=== PATIENT | female | born 1995 | race Caucasian/White ===

== ENCOUNTER 2021-06-19 08:49 | Emergency (ER) | payer OTHER, SELFPAY ==
--- NOTE | ~2021-06-19 | US_ITS ---
US abdomen limited DATE: 06/19/2021 11:26 INDICATION: Epigastric abdominal pain TECHNIQUE: Real-time imaging and Doppler analysis with attention to the liver, pancreas, gallbladder COMPARISON: None FINDINGS: No hepatic space-occupying mass lesion. Normal hepatopedal portal venous flow direction. No gallstones or gallbladder wall thickening. Negative sonographic Cosme's sign. Common bile duct me asures 4 mm, normal. No pancreatic mass lesion. IMPRESSION: Normal examination Reviewed, dictated and finalized at [facility] Reviewed, dictated and finalized at [facility]. IMPRESSION: Normal examination
[2021-06-19 09:04] VITALS: BP 100/73; PULSE 89; RESP 16; TEMP 36.6; O2SAT 98
[2021-06-19 09:18] LABS: Basophils Percent Auto 0.4 % (0.2-1.2); Eosinophils Absolute Auto 0.2 K/mm3 (0-0.3); Eosinophils Percent Auto 2.7 % (0-4.4); Hematocrit 39.9 % (37.0-47.0); Hemoglobin 13.6 g/dL (12.0-15.0); Immature Granulocyte Absolute 0.02 K/mm3 (0.00-0.031); Immature Granulocyte Percent A 0.3 % (0-0.5); Lymphocytes Absolute Auto 1.79 K/mm3 (0.9-3.2); Lymphocytes Percent Auto 23.1 % (18.3-44.2); Mean Corpuscular HGB Conc 34.1 g/dl (32-36); Mean Corpuscular Hemoglobin 28.4 pg (26-34); Mean Corpuscular Volume 83.3 fl (80-100); Mean Platelet Volume 9.9 fl (7.4-10.4); Monocytes Absolute Auto 0.8 K/mm3 (0.1-0.6); Monocytes Percent Auto 9.9 % (2.6-8.5); Neutrophils Absolute Auto 4.9 K/mm3 (1.3-6.7); Neutrophils Percent Auto 63.6 % (45.5-73.1); Platelet Count Result 327 k/mm3 (150-375); Red Blood Count 4.79 M/mm3 (4.2-5.4); Red Cell Distribution Width 14.7 % (11.5-14.5); White Blood Count 7.7 K/mm3 (4.5-10.0)
[2021-06-19 09:28] LABS: Add Urine Microscopic? YES; Alanine Aminotransferase 22 U/L (4-35); Alkaline Phosphatase 98 U/L (38-126); Anion Gap 12 mmol/L (8-16); Appearance Urine Clear (Clear); Aspartate Amino Transferase 25 U/L (14-36); Bacteria Urine Trace /hpf; Bilirubin Urine Negative (Negative); Bilirubin,Total 0.4 mg/dL (0.2-1.3); Blood Urea Nitrogen 11 mg/dL (7-17); Blood Urine Negative (Negative); Calcium 9.3 mg/dL (8.4-10.2); Carbon Dioxide 26 mmol/L (22-30); Chloride 103 mmol/L (98-107); Color Urine Yellow (Yellow); Estimated CRCL calculation 85 ml/min; Estimated Glomerular Filt Rate > 60; Glucose 108 mg/dL (65-110); Glucose Urine UA Negative (Negative); Ketones Urine Negative (Negative); Leukocyte Esterase Ur 2+ LEU/UL (Negative); Lipase 48 U/L (23-300); Mucus Urine Rare /lpf; Nitrate Urine Negative (Negative); Potassium 3.6 mmol/L (3.4-5.0); Protein Urine 1+ mg/dL (Negative); Sodium 141 mmol/L (137-145); Specific Grav Ur 1.018 (1.001-1.035); Squamous Epithelial Cell Urine Moderate /hpf (Few); Urobilinogen Urine Negative mg/dL (<2.0)
[2021-06-19 10:56] VITALS: BP 115/73; PULSE 92; RESP 16; O2SAT 98
--- NOTE | 2021-06-19 12:05 | ED.ABDPAIN ---
HPI - Abdominal Pain General Chief Complaint: Abdominal Pain Stated Complaint: abd pain Time Seen by Provider: 06/19/21 09:28 Source: patient Mode of arrival: ambulatory Limitations: no limitations History of Present Illness HPI narrative: 26-year-old female Basically healthy and here because of abdominal pain Last 2 or 3 nights she has been awakened in the early a.m. hours by epigastric pain Is mostly achy but there is also some shooting and sharp components to it She has had nausea and a decreased appetite but no fever She does not report that anything exacerbates her symptoms, i.e. she is able to eat without problems No diarrhea, no fever Her last menstrual period was not quite 4 weeks ago There is a family history of gallbladder issues Related Data Allergies Allergy/AdvReac Type Severity Reaction Status Date / Time No Known Allergies Allergy Unknown Verified 06/19/21 09:13 Review of Systems Review of Systems: All systems reviewed & are unremarkable except as noted in HPI and below Constitutional: Constitutional: Reports no additional constitutional complaints, Denies chills, Denies fever(s) and Denies headache(s) Eyes: Eyes: Reports no additional eye complaints and Denies change in vision ENT: Denies headache(s) and Denies sore throat Cardiovascular: Cardiovascular: Denies chest pain and Denies dyspnea Respiratory: Respiratory: Denies cough and Denies dyspnea Gastrointestinal: Gastrointestinal: Reports abdominal pain, Denies diarrhea, Reports nausea and Denies vomiting Genitourinary: Genitourinary: Denies urinary frequency and Denies dysuria Musculoskeletal: Musculoskeletal: Denies deformity, Denies arthralgias, Denies joint swelling and Denies numbness Integumentary/Breasts: Skin/Breast: Denies rash and Denies wounds Neurologic: Denies headache(s), Denies focal weakness and Denies numbness Psychiatric: Psychiatric: Reports no additional psychiatric complaints Endocrine: Endocrine: Reports no additional endocrine complaints Hematologic/Lymphatic: Hematologic/Lymphatic: Reports no additional hematologic/lymphatic complaints Allergic/Immunologic: Allergic/Immunologic: Reports no additional allergic/immunologic complaints [facility] Social History Social History (Updated 09/02/19 @ 16:59 by Akanksha Sandhu PA-C) Alcohol intake: never Substance use type: marijuana Gender identity (if verbalized by the patient): Female Exam Const: General: cooperative, healthy appearing, no acute distress and alert Orientation/consciousness: patient oriented x3 (alert) HENMT: Head: normal to inspection, normocephalic and atraumatic Ears: external ears normal General nose exam: no epistaxis Eyes: Conjunctivae: conjunctivae normal EOM: EOMs intact bilaterally Neck: Neck: normal visual inspection, supple and no JVD Resp: Effort & Inspection: normal respiratory effort and not labored Auscultation: clear to auscultation bilaterally, no rales, no rhonchi, no wheezes and other (BS =) Cardio: Rate: regular rate Rhythm: regular rhythm Heart sounds: no murmurs GI: Inspection: non-distended GI Palp: Yes Soft to palpation, No Tenderness to palpation present (GI), No Guarding due to palpation present (GI) and No Rebound tenderness present Auscultation: normal bowel sounds : General: Yes no CVA tenderness Skin: General skin exam: normal color and no rashes or lesions noted Neuro: General: patient oriented x3 (alert) and moves all extremities Speech: normal speech Extrem: General: normal to inspection and no pedal edema Psych: Affect: normal affect Course Course Emergency Course: Discussed with patient, circumstances of her symptoms are more worrisome for a GERD type issue versus gallbladder but will check labs and ultrasound Vital Signs Vital signs: Vital Signs Temperature 36.6 C 06/19/21 09:04 Pulse Rate 89 06/19/21 09:04 Respiratory Rate 16 06/19/21 09:04 Blood Pressure 100
[2021-06-19 12:56] VITALS: BP 107/68; PULSE 73; RESP 16; O2SAT 99
== END 2021-06-19 12:57 | disposition home or self-care (01) ==
PROVIDERS: Emergency Provider Emergency Medicine
DX: K21.9 Gastro-esophageal reflux disease without esophagitis (principal)
CPT/HCPCS: 36415; 76705; 80053; 81001; 81025; 83690; 85025; 99284; A9270

== ENCOUNTER 2021-11-12 17:43 | Outpatient (CLI) | payer OTHER, SELFPAY ==
--- NOTE | ~2021-11-12 | XR_ITS ---
XR_[id number] 11/12/2021 18:13 Indication: Neck pain and radiculopathy Procedure: 3 views of the cervical spine Comparison: No prior studies for comparison. Findings: Normal cervical alignment. Vertebral body and disc heights are preserved. No fracture, subl uxation or dislocation. No prevertebral soft tissue swelling. Odontoid process within normal limits. Impression: 1: No significant abnormality of the cervical spine. Reviewed, dictated and finalized at [facility]. [employer] Impression: 1: No significant abnormality of the cervical spine.
== END 2021-11-12 17:44 | disposition home or self-care (01) ==
LOC: ANHIMG 17:52
DX: M54.12 Radiculopathy, cervical region (principal); M54.16 Radiculopathy, lumbar region
CPT/HCPCS: 72040

== ENCOUNTER 2023-05-01 10:34 | Emergency (ER) | payer OTHER, SELFPAY ==
[2023-05-01] VITALS (12 sets, daily range): BP systolic 106–125; BP diastolic 69–84; PULSE 74–133; RESP 12–22; TEMP 36.1; O2SAT 98–100
--- NOTE | 2023-05-01 11:30 | ECG_ITS ---
Measurements Intervals [place] Rate: 81 P: 59 NE: 140 QRS: -5 QRSD: 90 T: 39 QT: 367 QTc: 428 Interpretive Statements SINUS RHYTHM POSSIBLE LEFT ATRIAL ENLARGEMENT [-0.1mV P WAVE IN V1/V2] NO PREVIOUS ECG AVAILABLE FOR COMPARISON Electronically Signed On 05-02-2023 11:09:46 CDT by Edilson Cox M.D.
[2023-05-01 11:45] LABS: Basophils Absolute Auto 0.1 K/mm3 (0.0-0.1); Basophils Percent Auto 0.7 % (0.2-1.2); Eosinophils Absolute Auto 0.1 K/mm3 (0-0.3); Eosinophils Percent Auto 1.4 % (0-4.4); Hemoglobin 13.2 g/dL (12.0-15.0); Immature Granulocyte Absolute 0.06 K/mm3 (0.00-0.031); Immature Granulocyte Percent A 0.6 % (0-0.5); Lymphocytes Absolute Auto 2.39 K/mm3 (0.9-3.2); Lymphocytes Percent Auto 24.4 % (18.3-44.2); Mean Corpuscular Hemoglobin 27.7 pg (26-34); Mean Platelet Volume 9.3 fl (7.4-10.4); Monocytes Absolute Auto 0.6 K/mm3 (0.1-0.6); Monocytes Percent Auto 6.3 % (2.6-8.5); Neutrophils Absolute Auto 6.5 K/mm3 (1.3-6.7); Neutrophils Percent Auto 66.6 % (45.5-73.1); Platelet Count Result 526 k/mm3 (150-375); Red Blood Count 4.76 M/mm3 (4.2-5.4); Red Cell Distribution Width 14.5 % (11.5-14.5); White Blood Count 9.8 K/mm3 (4.5-10.0)
[2023-05-01 11:51] LABS: Alanine Aminotransferase 64 U/L (6-35); Albumin Level 4.4 g/dL (3.5-5.1); Alkaline Phosphatase 75 U/L (38-126); Anion Gap 6 mmol/L (8-16); Aspartate Amino Transferase 75 U/L (14-36); Bilirubin,Total 0.4 mg/dL (0.2-1.3); Blood Urea Nitrogen 15 mg/dL (7-17); Calcium 8.9 mg/dL (8.4-10.2); Carbon Dioxide 30 mmol/L (22-30); Chloride 105 mmol/L (98-107); Estimated CRCL calculation 92 ml/min; Estimated Glomerular Filt Rate > 60; Glucose 108 mg/dL (65-110); Potassium 3.7 mmol/L (3.4-5.0); Sodium 141 mmol/L (137-145)
[2023-05-01 11:52] LABS: Lactic Acid Reflex 1.8 mmol/L (0.7-2.0)
--- NOTE | 2023-05-01 13:57 | ED.DIZZY ---
HPI - Dizziness General Chief Complaint: Syncope Stated Complaint: sepsis? Time Seen by Provider: 05/01/23 13:46 History of Present Illness HPI Narrative: Patient is a 28-year-old female with no significant past medical history here with concerns for possible sepsis. She states that she was recently hospitalized at [facility] or a foot infection where she received an I and D from Podiatry and dementia left against medical advice. She was discharged on Augmentin and another antibiotic she is unsure of. She notes that over the last 2 days she has been having episodes of lightheadedness and near syncope. She notes she has had a low-grade fever T-max of 99.7? F. She has been compliant with her antibiotics. She states that overall her foot seems to be much better than when she was admitted to the hospital. Minimal discharge from the foot, no erythema present at this time. She has follow-up that she can coordinate with Podiatry. She notes that she came into the emergency department after reading about sepsis online and was concerned she may be septic at this time. No cough, congestion, diarrhea, urinary symptoms. Related Data Allergies Allergy/AdvReac Type Severity Reaction Status Date / Time No Known Allergies Allergy Unknown Verified 03/28/22 14:31 Review of Systems Review of Systems: CONSTITUTIONAL: fever, no chills, or sweats. EYES: Denies visual changes, redness, or discharge. ENT: Denies rhinorrhea, congestion, sore throat, or otalgia. CARDIOVASCULAR: Light headedness, dizziness. Denies chest pain RESPIRATORY: Denies cough or dyspnea. GASTROINTESTINAL: Denies abdominal pain, nausea, vomiting, or diarrhea. GENITOURINARY: Denies dysuria or hematuria. SKIN: Denies rash or itching. Foot wound which is well healing with no erythema. MUSCULOSKELETAL: Denies back pain, joint pain, or myalgia. NEUROLOGIC: Denies headache, numbness, or weakness. PSYCHIATRIC: Denies anxiety or depression. [facility] Past Medical History Medical History Chronic disease of adenoids Encounter for screening examination for sexually transmitted disease Surgical History Surgical History History of tonsillectomy Social History Social History (Updated 03/28/22 @ 14:33 by Lupe Babin [facility]) Smoking status: Never smoker Alcohol intake: never Substance use: current Substance use type: marijuana Other substance usage details: daily Living arrangements: with family Additional living arrangements comments: single Occupation/Education: student Gender identity (if verbalized by the patient): Female Sexual Orientation (if Verbalized by the Patient): Straight or Heterosexual Exam Narrative: GENERAL: Well-appearing, well-nourished, and in no acute distress. HEAD: Normocephalic, atraumatic. EYES: PERRLA and EOMI. ENT: Nares clear. Mucous membranes moist. NECK: Supple. CHEST: Clear to auscultation. No respiratory distress. HEART: Tachycardic. Normal peripheral pulses. ABDOMEN: Soft, nontender, nondistended. EXTREMITIES: Normal range of motion. No edema. SKIN: Warm, dry, no rash. 3 cm incision present over the left heel. No surrounding erythema. Minimal serosanguineous fluid from wound. NEURO: No focal deficits. Alert and oriented x3. PSYCH: Normal mood and affect. Course Course Emergency Course: Chart review performed. Patient is a 28 year old female here after a syncopal episode. She is currently following with [facility] and left AMA. Patient seen evaluated. In no acute distress. She is tachycardic but remainder of vitals are grossly within normal limits. Wound does appear to be clean with no overt infection. There is a line drawn on the foot where prior infection had spread, the skin within this area appears well. Sepsis workup artery ordered in triage. Will additionally give some IV fluids given tachycardia. Hanna
[2023-05-01] MEDS: SODIUM CHLORIDE 0.9% IV 1,000 ML 999 ML IV CONT ×2 (14:31→15:20)
[2023-05-01 14:50] LABS: CRP 0.6 mg/dL (<1.0)
[2023-05-01 15:15] LABS: Erythrocyte Sedimentation Rate 11 mm/hr (0-20)
== END 2023-05-01 17:00 | disposition home or self-care (01) ==
PROVIDERS: Emergency Medicine; Emergency Provider Student in an Organized Health Care Education/Training Program; PCP Emergency Medicine
DX: E86.0 Dehydration (principal); R00.0 Tachycardia, unspecified; L08.9 Local infection of the skin and subcutaneous tissue, unspecified
CPT/HCPCS: 36415; 80053; 83605; 85025; 85652; 86140; 93005; 96360; 96361; 99284; J7030

== ENCOUNTER 2023-05-16 10:11 | Emergency (ER) | payer OTHER, SELFPAY ==
--- NOTE | 2023-05-16 10:24 | ED_ITS ---
HPI - CPR General Chief Complaint: Cardiac Arrest/CPR Stated Complaint: cardiac arrest Time Seen by Provider: 05/16/23 10:24 History of Present Illness HPI narrative: This is a an approximate 24-year-old female, brought in by EMS after being found unresponsive without a pulse. EMS reports they were called to a person's home who was not related to the patient. EMS reports the patient was last seen breathing at 07:30 this morning. On arrival, they reported initial rhythm of asystole. EMS reports 40 minutes of ACLS was performed with 6 total milligrams of epinephrine given. They report the patient's rhythm varied between asystole and PEA. Blood sugar in the field reported in the 120s. The patient was also given 2 mg Narcan IO. Review of Systems Review of Systems: Unable to obtain review of systems due to patient's unresponsiveness Exam Narrative: GENERAL: Well-developed, well-nourished, unresponsive with CPR ongoing HEAD: Normocephalic, atraumatic. EYES: Pupils fixed at 6 mm and unresponsive ENT: Nares clear, no rhinorrhea or epistaxis. Mucous membranes moist. Ventilations ongoing with an i-gel in place NECK: Supple. CHEST: Coarse breath sounds bilaterally with bagging HEART: Palpable peripheral pulses with chest compressions. No palpable pulse without compressions ABDOMEN: Soft, nondistended EXTREMITIES: Normal passive range of motion. No edema. No obvious deformities SKIN: Cool, dry, no rash. NEURO: Unresponsive Course Course Emergency Course: 10:21 - Despite 40 minutes of ACLS in the field with 6 amps of epinephrine, 2 mg Narcan and despite excellent CPR in the emergency room with 2 additional amps of epinephrine, IV dextrose and calcium, we were unable to achieve ROSC. On arrival, the patient's initial rhythm was asystole. On initial and repeat pulse check the patient's rhythm remained in asystole. Time of declared at 10:21. 10:25 - Charge nurse, AILIN Tubbs contacted the biomedical engineering internship for evaluation. 13:07 - I informed he patient's primary care provider, Dr. Sanchez of her . Procedures Intubation Intubation #1: Intubation Date: 05/16/23 Intubation Time: 10:15 Time out performed: No sedative: none paralytic: other (None) Laryngoscope: other (Glidescope) Tube Size (cm): 8.0 Method of Intubation: orotracheal Number of Attempts: 1 Tube Secured Depth (cm): 26 Tube Secured Location: teeth Tube Placement Confirmation: visualized tube passing through cords, equal breath sounds bilaterally, no breath sounds over epigastrium and confirmation by capnometry Patient Tolerated Procedure: no complications Intubation Complications: none MDM - Cardiac Arrest/CPR MDM Narrative Medical decision making narrative: Plan: ACLS, reassess Differential Diagnosis Differential diagnosis: Likely acute massive pulmonary embolism, acute myocard ial infarction, cardiac arrest, sudden cardiac and other (Drug overdose, alcohol intoxication,) Discharge Plan Discharge Clinical Impression: Cardiac arrest Patient Disposition: Condition: Time of Disposition: 10:21
--- NOTE | 2023-05-16 10:45 | PC.NURSE ---
1012; Pt to ED CPR in progress, ACLS protocol. Pt found at friends house unresponsive with no pulse. friend reported pt normal at 0700. When she went to wake her up at 0800 pt unresponsive. Friend stated she didn't know her name just giving her a place to stay the night. EMS reports Epinepherine 7 mg total, amp of Bicarb & Narcan 2mg given per IO with no response. ACLS protocol continued upon arrival to room 8. 1015: #8 ET tube inserted by Dr. Clinton Ozuna secured at 26 at lip. See code sheet for medications administered during code. 1021: Pt not responding to interventions remains in asystole in [address] leads [address] this time Dr[address] Ozuna instructed to cease efforts, reported time of 1021
--- NOTE | 2023-05-16 11:02 | PC.NURSE ---
[place] called by covered button maker, currently in route
[2023-05-17 15:39] LABS: Glucose Point of Care 214 mg/dl (65-105)
== END 2023-05-16 14:15 | disposition expired ==
PROVIDERS: Emergency Provider Preventive Medicine Aerospace Medicine; PCP Emergency Medicine
DX: I46.9 Cardiac arrest, cause unspecified (principal)
CPT/HCPCS: 31500; 82948; 92950; 96374; 96375; 99285; J0171; J7030